=== PATIENT | female | born 1995 | race Caucasian/White ===

== ENCOUNTER 2017-01-21 16:07 | Outpatient (CLI) | payer MEDICAID | END 2017-01-21 16:08 | disposition home or self-care (01) | LOC: BICULT 16:07 | PROVIDERS: ATTEND Family Medicine | DX: N92.0 Excessive and frequent menstruation with regular cycle (principal) | CPT/HCPCS: 76856 ==

== ENCOUNTER 2017-08-14 22:31 | Emergency (ER) | payer MEDICAID, SELFPAY | END 2017-08-14 22:58 | disposition home or self-care (01) | LOC: ERS 22:31 | DX: R45.851 Suicidal ideations (principal) | CPT/HCPCS: 99284 ==

== ENCOUNTER 2024-01-03 08:27 | Outpatient (CLI) | payer BC | END 2024-01-03 08:28 | disposition home or self-care (01) | LOC: ULT 08:27 | PROVIDERS: ATTEND Internal Medicine Gastroenterology | DX: K62.5 Hemorrhage of anus and rectum (principal); R10.12 Left upper quadrant pain | CPT/HCPCS: 76700 ==